=== PATIENT | female | born 2000 | race Caucasian/White ===

== ENCOUNTER 2022-08-21 12:09 | Emergency (ER) | payer BC ==
[2022-08-21] MEDS ORDERED: Iopamidol 300 61% 100 ML VIAL FS ONE (12:20)
[2022-08-21 12:49] LABS: Bilirubin Neg (Negative); Blood, Urine 10 (Negative); Clarity Slightly Cloudy (Clear); Glucose, Urine (Dipstick) Normal (Negative); Ketone, Urine 5 mg/dL (Negative); Leukocyte Negative (Negative); Nitrite Negative (Negative); Protein, Urine (Dipstick) 15 mg/dl (Neg-Trace); Specific Gravity, Urine 1.025 (1.005-1.030); Urobilinogen Normal mg/dL (Less than 2)
[2022-08-21 12:53] LABS: Hemoglobin 13.2 g/dL (12.0-15.5); Mean Corpuscular HGB CONC 34.6 g/dL (32.0-36.0); Mean Corpuscular Hemoglobin 31.4 pg (27.0-33.0); Mean Corpuscular Volume 90.7 fl (81.6-98.3); Mean Platelet Volume 10.7 fl (7.4-10.4); Platelet Count 354 10x3/uL (150-450); RBC Distribution Width 12.7 % (11.5-14.5); White Blood Cell (WBC) Count 24.7 10x3/uL (3.5-10.5)
[2022-08-21 12:59] LABS: Bacteria/HPF Rare-Few HPF (None Seen)
[2022-08-21 13:02] LABS: BHCG - Serum Negative (NEGATIVE); Pregs Control Background? CLEAR/WHITE (CLR/WHITE); Pregs Control Bar Appear? YES (CONTROL BAR)
[2022-08-21 13:08] LABS: ALT (SGPT) 228 U/L (8-55); AST (SGOT) 156 U/L (5-34); Alkaline Phosphatase 126 U/L (40-110); Anion Gap 14 mmol/L (10-20); BUN (Urea Nitrogen) 9 mg/dL (7.0-18.7); Calc. Creatinine Clearance 0 mL/min (70-130); Calcium 9.1 mg/dL (7.8-10.44); Carbon Dioxide 22 mmol/L (22-29); Chloride 97 mmol/L (98-107); Estimated GFR 125; Globulin 3.3 g/dL (2.4-3.5); Glucose 108 mg/dL (70-105); Potassium 3.5 mmol/L (3.5-5.1); Protein, Total 7.3 g/dL (6.0-8.3); Sodium 129 mmol/L (136-145)
[2022-08-21] MEDS ORDERED: Morphine 4 MG/ML VIAL ONE (13:14)
[2022-08-21] MEDS ORDERED: Ondansetron PF 4 MG/2 ML Vial ONE (13:14)
[2022-08-21 13:29] LABS: MDiff Complete? YES
[2022-08-21 13:30] LABS: Band 16 % (5-11); Eosinophils 1 % (0-10); Lymphocytes 3 % (21-51); Monocytes 8 % (0-10); Neutrophil 72 % (42-75)
[2022-08-21 13:31] LABS: Platelet Morphology Comment Appears Adequate
[2022-08-21] MEDS ORDERED: Piperacillin/Tazobactam 4.5 GM VIAL ONE (14:10)
== END 2022-08-21 16:23 | disposition short-term general hospital (02) ==
LOC: CSHERS 12:09
DX: K51.00 Ulcerative (chronic) pancolitis without complications (principal)
CPT/HCPCS: 74177; 80053; 81003; 81015; 83605; 84703; 85025; 87040; 87324; 87449; 96361; 96365; 96375; J2270; J2405; J2543; Q9967